=== PATIENT | male | born 1990 | race Caucasian/White ===

== ENCOUNTER 2016-10-14 10:47 | Emergency (ER) | payer OTHER ==
[~2016-10-14 10:47] MED LIST: ALBUTEROL17 GM INH; FLEXERIL PO; IBUPROFEN800 MG PO; KEFLEX250 M1 PO; LORTAB 7.5-5001 TAB PO; NAPROXEN PO; PREDNISONE PO; [UNRECOGNIZED DRUG - SUPPLY] TP
== END 2016-10-14 12:25 | disposition home or self-care (01) ==
LOC: CED 10:47
DX: T40.1X1A Poisoning by heroin, accidental (unintentional), initial encounter (principal); F17.210 Nicotine dependence, cigarettes, uncomplicated
CPT/HCPCS: 99284